=== PATIENT | male | born 1960 | race Caucasian/White ===

== ENCOUNTER 2017-09-25 20:00 | Emergency (ER) | payer OTHER, MEDICAID ==
[2017-09-25 20:04] VITALS: BP_SYST 123
[2017-09-25 21:20] VITALS: BP_SYST 121
== END 2017-09-25 21:05 | disposition home or self-care (01) ==
LOC: SED 20:00
DX: S01.01XD Laceration without foreign body of scalp, subsequent encounter (principal); Z91.040 Latex allergy status; Z88.8 Allergy status to other drugs, medicaments and biological substances; Z86.59 Personal history of other mental and behavioral disorders; W19.XXXD Unspecified fall, subsequent encounter
CPT/HCPCS: 99283